=== PATIENT | male | born 1960 | race Caucasian/White ===

== ENCOUNTER 2017-09-13 13:54 | Emergency (ER) | payer OTHER ==
[2017-09-13] MEDS ORDERED: NS 1,000 ML IV ONE (14:26)
[2017-09-13] MEDS ORDERED: KETOROLAC 15 MG/1 ML SDV IVP ONE (14:26)
--- NOTE | 2017-09-13 14:29 | EDPHY ---
H & P - Personal History Tetanus Vaccine Date: 03/05/15 - Medical/Surgical History Hx Asthma: No Hx Chronic Respiratory Disease: No Hx Diabetes: No Hx Cardiac Disease: No Hx Renal Disease: No Hx Cirrhosis: No Hx Alcoholism: No Hx HIV/AIDS: No Hx Splenectomy or Spleen Trauma: No Other PMH: face/knee/back surgery - Social History Smoking Status: Current every day smoker <Jesus Manuel Cavazos - Last Filed: 09/13/17 15:06> <Dionisio Mark - Last Filed: 09/13/17 15:39> Time Seen by Provider: 09/13/17 14:18 HPI/ROS: Chief Complaint: Cough, chills, body aches HPI: 57-year-old male with a history of COPD presenting with 2 days of chills, dry cough and body aches. Cough is nonproductive. Some nausea but no vomiting. No diarrhea. No chest pain. Has generalized body aches all over. Last took ibuprofen about 10 o'clock this morning. Also having a little bit of burning with urination. Did have a history of pneumonia several years ago when his not Hospital for back surgery. No sore throat. No neck pain or stiffness. No headache. He is not any chronic daily medications. ROS: 10 point Review of Systems is negative except as noted in the HPI. PMH: Possible COPD Social History: Positive smoking, occasional alcohol, no recreational drug use Family History: non-contributory Physical Exam: Gen: Awake, Alert, uncomfortable appearing HEENT: Nose: no rhinorrhea Eyes: PERRLA, EOMI Mouth: Moist mucosa Neck: Supple, no JVD Chest: nontender, lungs clear to auscultation Heart: S1, S2 normal, no murmur Abd: Soft, non-tender, no guarding Back: no CVA tenderness, no midline tenderness Ext: no edema, non-tender Skin: no rash Neuro: CN II-XII intact, Sensation grossly intact, Strength 5/5 in bilateral upper and lower extremities (Jesus Manuel Cavazos) Constitutional: Initial Vital Signs Temperature (C) 37.3 C 09/13/17 15:15 Heart Rate 92 09/13/17 15:15 Respiratory Rate 20 09/13/17 15:15 Blood Pressure 125/99 H 09/13/17 15:15 O2 Sat (%) 94 09/13/17 15:15 O2 Delivery Mode Room Air Allergies/Adverse Reactions: No Known Allergies Allergy (Unverified 09/13/17 15:19) Home Medications: Medication Instructions Recorded Ketorolac Tromethamine [Toradol] 10 mg PO Q6H #16 tab 09/13/17 Oseltamivir Phosphate [Tamiflu 75 75 mg PO BID #10 cap 09/13/17 mg (*)] Medical Decision Making <Jesus Manuel Cavazos - Last Filed: 09/13/17 15:06> - Diagnostics Imaging: Discussed imaging studies w/ [facility] player Radiologist <Dionisio Mark - Last Filed: 09/13/17 15:39> ED Course/Re-evaluation: 57-year-old with flu-like symptoms. Vital signs are appropriate. Patient is quite uncomfortable appearing. Will place an IV. Will give IV Toradol. Will get a chest x-ray. Will test for influenza. Patient is positive for influenza B. Will give Tamiflu. Patient signed out to Dr. Mark pending chest x-ray and blood work results and improvement in his discomfort. (Jesus Manuel Cavazos) 3:40 p.m. the patient is feeling much better and is eager to go. He is asking for prescription for oral Toradol. He has already been given a prescription for Tamiflu. (Dionisio Mark) Differential Diagnosis: Partial list of the Differential diagnosis considered include but were not limited to; influenza, viral syndrome, dehydration and although unlikely based on the history and physical exam, I also considered bronchitis, pneumonia, sepsis. (Dionisio Mark) - Data Points Laboratory Results: Laboratory Results 09/13/17 14:50 09/13/17 14:50 09/13/17 09/13/17 09/13/17 14:56 14:50 14:50 WBC 7.63 10^3/uL 10^3/uL (3.80-9.50) RBC 5.10 10^6/uL 10^6/uL (4.40-6.38) Hgb 16.0 g/dL g/dL (13.7-17.5) Hct 46.6 % % (40.0-51.0) MCV 91.4 fL fL (81.5-99.8) MCH 31.4 pg pg (27.9-34.1) MCHC 34.3 g/dL g/dL (32.4-36.7) RDW 13.3 % % (11.5-15.2) Plt Count 156 10^3/uL 10^3/uL (150-400) MPV 8.8 fL fL (8.7-11.7) Neut % (Auto) 75.4 % H % (39.3-74.2) Lymph % (Auto) 16.4 % % (15.0-45.0) [place] % (Auto) 7.6 % % (4.5-13.0) Eos % (Auto) 0.0 % L % (0.6-7.6) Baso % (Auto) 0.3 % % (0.3-1.7) Nucleat RBC Rel Count 0.0 % % (0.0-0.2) Absolute Neuts (auto) 5.76 10^3/uL 10^3/uL (1.70-6.50) Absolute Lymphs (auto) 1.25 10^3/uL 10^3/uL (1.00-3.00) Absolute Monos (auto) 0.58 10^3/uL 10^3/uL (0.30-0.80) Absolute Eos (auto) 0.00 10^3/uL L 10^3/uL (0.03-0.40) Absolute Basos (auto) 0.02 10^3/uL 10^3/uL (0.02-0.10) Absolute Nucleated RBC 0.00 10^3/uL 10^3/uL (0-0.01) Immature Gran % 0.3 % % (0.0-1.1) Immature Gran # 0.02 10^3/uL 10^3/uL (0.00-0.10) Sodium 140 mEq/L mEq/L (135-145) Potassium 4.4 mEq/L mEq/L (3.5-5.2) Chloride 100 mEq/L mEq/L (97-110) Carbon Dioxide 23 mEq/l mEq/l (22-31) Anion Gap 17 mEq/L H mEq/L (8-16) BUN 12 mg/dL mg/dL (7-23) Creatinine 1.1 mg/dL mg/dL (0.7-1.3) Estimated GFR > 60 Glucose 89 mg/dL mg/dL (70-100) Calcium 9.0 mg/dL mg/dL (8.5-10.4) Urine Color YELLOW Urine Appearance CLEAR Urine pH 6.0 (5.0-7.5) Ur Specific [place] 1.020 (1.002-1.030) Urine Protein NEGATIVE (NEGATIVE) Urine Ketones NEGATIVE (NEGATIVE) Urine Blood NEGATIVE (NEGATIVE) Urine Nitrate NEGATIVE (NEGATIVE) Urine Bilirubin NEGATIVE (NEGATIVE) Urine Urobilinogen 0.2 EU EU (0.2-1.0) Ur Leukocyte Esterase NEGATIVE (NEGATIVE) Urine Glucose NEGATIVE (NEGATIVE) Influenza A,B Rapid 09/13/17 14:30 WBC RBC Hgb Hct MCV MCH MCHC RDW Plt Count MPV Neut % (Auto) Lymph % (Auto) [place] % (Auto) Eos % (Auto) Baso % (Auto) Nucleat RBC Rel Count Absolute Neuts (auto) Absolute Lymphs (auto) Absolute Monos (auto) Absolute Eos (auto) Absolute Basos (auto) Absolute Nucleated RBC Immature Gran % Immature Gran # Sodium Potassium Chloride Carbon Dioxide Anion Gap BUN Creatinine Estimated GFR Glucose Calcium Urine Color Urine Appearance Urine pH Ur Specific [place] Urine Protein Urine Ketones Urine Blood Urine Nitrate Urine Bilirubin Urine Urobilinogen Ur Leukocyte Esterase Urine Glucose Influenza A,B Rapid POSITIVE FOR FLU B H (NEGATIVE) Medications Given: Discontinued Medications Sodium Chloride (Ns) 1,000 mls @ 0 mls/hr IV ONCE ONE; Wide Open PRN Reason: Protocol Stop: 09/13/17 14:27 Last Admin: 09/13/17 14:58 Dose: 1,000 mls Ketorolac Tromethamine (Toradol) 15 mg IVP EDNOW ONE Stop: 09/13/17 14:27 Last Admin: 09/13/17 14:56 Dose: 15 mg Departure <Jesus Manuel Cavazos - Last Filed: 09/13/17 15:06> <Dionisio Mark - Last Filed: 09/13/17 15:39> - Departure Disposition: Home, Routine, Self-Care Clinical Impression: Influenza Condition: Good Instructions: Influenza (ED) Additional Instructions: Follow up with her primary care provider in 3-4 days for further evaluation. Return to the emergency department for increasing chest pain, worsening shortness of breath, uncontrolled fevers or chills, or any other concerns. Referrals: Lary Cyr MD [Primary Care Provider] - As per Instructions Prescriptions: Ketorolac Tromethamine [Toradol] 10 mg PO Q6H #16 tab Oseltamivir Phosphate [Tamiflu 75 mg (*)] 75 mg PO BID #10 cap
[2017-09-13 15:00] LABS: PLATELET COUNT 156 10^3/uL (150-400)
[2017-09-13] MEDS ORDERED: OSELTAMIVIR PHOSPHATE 75 MG CAP PO ONE (15:05)
[2017-09-13 15:18] VITALS: RESP 20; TEMP 99.1; O2SAT 94
[2017-09-13 16:15] VITALS: BP 132/88; PULSE 84
== END 2017-09-13 16:02 | disposition home or self-care (01) ==
LOC: CED 13:54
DX: J10.1 Influenza due to other identified influenza virus with other respiratory manifestations (principal); E86.9 Volume depletion, unspecified; F17.200 Nicotine dependence, unspecified, uncomplicated
CPT/HCPCS: 71046; 96361; 96374; 99284; J1885; 80048-PO; 81003-PO; 85025-PO; 87400-PO